=== PATIENT | male | born 1965 | race Caucasian/White ===

== ENCOUNTER 2020-04-14 18:59 | Emergency (ER) | payer OTHER ==
[~2020-04-14] VITALS: Ht 172.7 cm; Wt 113.4 kg
[2020-04-14] MEDS ORDERED: Pepcid20 MG PO (20:37)
[2020-04-14] MEDS ORDERED: Benadryl 50 mg50 MG PO (20:37)
[2020-04-14] MEDS ORDERED: Prednisone20 MG PO (20:37)
== END 2020-04-14 21:07 | disposition home or self-care (01) ==
LOC: ER 18:59
DX: L23.7 Allergic contact dermatitis due to plants, except food (principal); I10 Essential (primary) hypertension; Z79.52 Long term (current) use of systemic steroids; Z79.899 Other long term (current) drug therapy
CPT/HCPCS: 96372; 99282-25; J1100; J1200